=== PATIENT | female | born 1990 | race Caucasian/White ===

== ENCOUNTER 2019-06-25 22:09 | Emergency (ER) | payer OTHER ==
[~2019-06-25] VITALS: Ht 170 cm; Wt 122.1 kg
--- NOTE | 2019-06-25 22:15 | ED Abdominal Pain ---
General Stated Complaint: UPPER ABD PAIN Source of Information: Patient History of Present Illness Date Seen by Provider: Jun 25, 2019 Time Seen by Provider: 22:15 Initial Comments 29 yo F presenting with epigastric and RUQ abdominal pain that came on about 1 hour travel pta. She was at work and had just eaten some mac and cheese before the onset of pain. She is about 20 weeks EGA with current and has an appt to see Dr. Dia for her routine OB appt tomorrow. She had similar pains when she was in [place] last week after eating some food with pineapple. The pain resolved in [place] on it's own after she felt a "popping" sensation in her upper abdomen and it faded away. She has nausea with this but no vomiting. The pain does radiate to her back and right shoulder area. She has not tried Tylenol for the pain but did take Tums in [place] without any improvement. She had an OB ultrasound before going to [facility] and she was told they saw some stones in her gallbladder from when they did that routine OB ultrasound so she thinks this might be her gallbladder giving her problems. She has had no fever or chills and no change in her bowels and no burning or pain with urination. She has no vaginal bleeding or dischage. She still feels the baby moving. Allergies and Home Medications Allergies Coded Allergies: No Known Drug Allergies (Unverified , 06/25/19) Home Medications Acetaminophen with Codeine 1 Each Tablet, 1 EACH PO Q4H PRN for PAIN-SEVERE (8- 10) Prescribed by: BRITTNEY CASAREZRT on 06/25/192323 Ondansetron 4 Mg Tab.rapdis, 4 MG PO Q6H PRN for NAUSEA/VOMITING Prescribed by: BRITTNEY Frazier ENYART on 06/25/192323 Patient Home Medication List Home Medication List Reviewed: Yes Review of Systems Review of Systems Constitutional: No chills, No fever EENTM: No Symptoms Reported Respiratory: No Symptoms Reported Cardiovascular: No Symptoms Reported Gastrointestinal: See HPI Genitourinary: No Symptoms Reported Musculoskeletal: no symptoms reported Skin: no symptoms reported Psychiatric/Neurological: No Symptoms Reported Past Xcisvxf-Qjsyfc-Xnhwdq Hx Past Med/Social Hx: Reviewed Nursing Past Med/Soc Hx Patient Social History Recent Foreign Travel: No Contact w/Someone Who Travel: No Past Medical History Surgeries: No Physical Exam Vital Signs Vital Signs - First Documented 06/25/19 22:13 Temp 36.8 Pulse 101 Resp 22 B/P (MAP) 156/77 (103) Pulse Ox 97 O2 Delivery Room Air Capillary Refill : Height/Weight/BMI Height: '" Weight: lbs. oz. kg; BMI Method: General Appearance: WD/WN, moderate distress (holding her RUQ and epigastric area and pacing) HEENT: pharynx normal Neck: non-tender, supple, normal inspection Respiratory: chest non-tender, lungs clear, normal breath sounds, no respiratory distress, no accessory muscle use Cardiovascular: normal peripheral pulses, regular rate, rhythm Gastrointestinal: normal bowel sounds, soft, no pulsatile mass, guarding; No rebound; tenderness (RUQ and epigastric area), other (gravid uterus) Extremities: normal range of motion, non-tender, normal inspection, normal capillary refill Back: no vertebral tenderness, CVA tenderness (R) Neurologic/Psychiatric: pastor II-XII nml as tested, no motor/sensory deficits, alert, oriented x 3, other (anxious) Skin: normal color, warm/dry Images 1 - epigastric and RUQ abdominal pain, worse with palpation 2 - pain radiates into back and right scapula area Progress/Results/Core Measures Results/Orders Lab Results Laboratory Tests Test 06/25/19 22:26 06/25/19 22:32 Range/Units White Blood Count 12.1 H 4.3-11.0 10^3/uL Red Blood Count 4.14 L 4.35-5.85 10^6/uL Hemoglobin 11.7 11.5-16.0 G/DL Hematocrit 35 35-52 % Mean Corpuscular Volume 85 80-99 FL Mean Corpuscular Hemoglobin 28 25-34 PG Mean Corpuscular Hemoglobin Concent 33 32-36 G/DL Red Cell Distribution Width 15.0 H 10.0-14.5 % Platelet Count 379 130-400 10^3/uL Mean Platelet Volume 9.2 7.4-10.4 FL Neutrophils (%) (Auto) 62 42-75 % Lymphocytes (%) (Auto) 30 12-44 % Monocytes (%) (Auto) 6 0-12 % Eosinophils (%) (Auto) 2 0-10 % Basophils (%) (Auto) 0 0-10 % Neutrophils # (Auto) 7.5 1.8-7.8 X 10^3 Lymphocytes # (Auto) 3.6 1.0-4.0 X 10^3 Monocytes # (Auto) 0.7 0.0-1.0 X 10^3 Eosinophils # (Auto) 0.2 0.0-0.3 10^3/uL Basophils # (Auto) 0.0 0.0-0.1 10^3/uL Sodium Level 136 135-145 MMOL/L Potassium Level 3.9 3.6-5.0 MMOL/L Chloride Level 100 98-107 MMOL/L Carbon Dioxide Level 21 21-32 MMOL/L Anion Gap 15 H 5-14 MMOL/L Blood Urea Nitrogen 14 7-18 MG/DL Creatinine 0.86 0.60-1.30 MG/DL Estimat Glomerular Filtration Rate > 60 BUN/Creatinine Ratio 16 Glucose Level 109 H 70-105 MG/DL Calcium Level 9.3 8.5-10.1 MG/DL Corrected Calcium 9.6 8.5-10.1 MG/DL Total Bilirubin 0.2 0.1-1.0 MG/DL Aspartate Amino Transf (AST/SGOT) 16 5-34 U/L Alanine Aminotransferase (ALT/SGPT) 13 0-55 U/L Alkaline Phosphatase 79 40-136 U/L Total Protein 7.0 6.4-8.2 GM/DL Albumin 3.6 3.2-4.5 GM/DL Lipase 41 8-78 U/L Urine Color YELLOW Urine Clarity CLEAR Urine pH 6.5 5-9 Urine Specific [place] 1.025 H 1.016-1.022 Urine Protein NEGATIVE NEGATIVE Urine Glucose (UA) NEGATIVE NEGATIVE Urine Ketones NEGATIVE NEGATIVE Urine Nitrite NEGATIVE NEGATIVE Urine Bilirubin NEGATIVE NEGATIVE Urine Urobilinogen 0.2 < = 1.0 MG/DL Urine Leukocyte Esterase NEGATIVE NEGATIVE Urine RBC (Auto) NEGATIVE NEGATIVE Urine RBC NONE /HPF Urine WBC 0-2 /HPF Urine Squamous Epithelial Cells 10-25 H /HPF Urine Crystals PRESENT H /LPF Urine Amorphous Sediment MOD MORRO URATES H /LPF Urine Bacteria FEW H /HPF Urine Casts NONE /LPF Urine Mucus LARGE H /LPF Urine Culture Indicated NO My Orders Orders - BRITTNEY ALMENDAREZ MD Comprehensive Metabolic Panel (06/25/19 22:15) Lipase (06/25/19 22:15) Ua Culture If Indicated (06/25/19 22:15) Ed Iv/Invasive Line Start (06/25/19 22:15) Cbc With Automated Diff (06/25/19 22:15) Ns Iv 1000 Ml (Sodium Chloride 0.9%) (06/25/19 22:24) Ondansetron Injection (Zofran Injectio (06/25/19 22:24) Fentanyl Injection (Sublimaze Injection (06/25/19 22:24) Rx-Acetaminophen/Codeine (Rx-Tylenol #3) (06/25/19 23:15) Morphine Injection (Morphine Injection (06/25/19 23:14) Rx-Ondansetron Po (Rx-Zofran Po) (06/25/19 23:30) Rx-Ondansetron Po (Rx-Zofran Po) (06/25/19 23:23) Medications Given in ED Current Medications Medications Dose Ordered Sig/[place] Route Start Time Stop Time Status Last Admin Dose Admin Ondansetron HCl 4 mg Q6H PRN PO 06/25/19 23:30 06/25/19 23:29 DC 06/25/19 23:28 4 MG Vital Signs/I&O 06/25/19 06/25/19 22:13 23:28 Temp 36.8 36.8 Pulse 101 106 Resp 22 18 B/P (MAP) 156/77 (103) 142/82 (103) Pulse Ox 97 97 O2 Delivery Room Air 06/26/19 00:00 Intake Total 1000 ml Balance 1000 ml Progress Progress Note #1: Progress Note check labs and evaluate for obstruction or cholecystitis with CBC, Chemistry and look for pancreatitis with Lipase. Give IVF for hydration, Fentanyl for pain, Zofran for nausea. Check in with Dr. Dia after results back and see if her symptoms improve with treatment here in the ED. Progress Note #2: Time: 23:08 Progress Note On recheck of patient she reports her pain is improved with treatment. Reviewed with her that the labs show mild elevation of WBC to 12.1 K and Chemistry stable without elevation of Lipase or LFTs. Her UA shows some concentration to indicate she needs more hydration. She has no signs of cholecystitis or obstruction on her tests. 2311 D/w Dr. Dia and with her labs looking ok he was wanting her to have Tylenol # 3 for pain at home. Follow a strict low fat diet. See him in the am as scheduled. Will also send with take home for Tylenol # 3 and Zofran ODT and scripts of each. She did get an additional dose of pain medicine, Morphine 4 mg IV, prior to discharge to help with pain. Departure Impression Primary Impression: Epigastric abdominal pain affecting in second trimester Additional Impression: with abdominal pain of right upper quadrant, antepartum Disposition: HOME, SELF-CARE Condition: Stable Departure-Patient Inst. Decision time for Depature: 23:24 Referrals: ROC VELASCO DO (PCP/Family) Primary Care Physician JEREMY DIA DO Patient Instructions: Gallstones (DC), Low Cholesterol, Saturated Fat, and Trans Fat Diet Add. Discharge Instructions: Follow a strict Low fat diet Use the Tylenol # 3 pain medicine to help with severe pain. Make sure you are drinking plenty of water and staying well hydrated. Also take miralax while you are taking the Tylenol # 3 to prevent Constipation. Keep your appointment with Dr. Dia on SaturdayJune 26. Scripts Ondansetron (Ondansetron Odt) 4 Mg Tab.rapdis 4 MG PO Q6H PRN for NAUSEA/VOMITING for 2 Days, #8 TAB 0 Refills Prov: BRITTNEY ALMENDAREZ MD 06/25/19 Acetaminophen with Codeine (Acetaminophen-Cod #3 Tablet) 1 Each Tablet 1 EACH PO Q4H PRN for PAIN-SEVERE (8-10) for 3 Days, #20 TAB 0 Refills Prov: BRITTNEY ALMENDAREZ MD 06/25/19 BRITTNEY ALMENDAREZ MD Jun 25, 2019 22:15
[2019-06-25] MEDS ORDERED: fentaNYL INJECTION 100 MCG/2 ML AMP IVP STA (22:24)
[2019-06-25] MEDS ORDERED: ONDANSETRON 4 MG/2 ML (SDV) Z0FRAN IVP STA (22:24)
[2019-06-25] MEDS ORDERED: NS IV 1000 ML 1,000 ML IV STA (22:24)
[2019-06-25 22:43] LABS: HEMATOCRIT 35 % (35-52); HEMOGLOBIN 11.7 G/DL (11.5-16.0); MEAN CORPUSCULAR HEMOGLOBIN 28 PG (25-34); MEAN CORPUSCULAR HGB CONC 33 G/DL (32-36); MEAN CORPUSCULAR VOLUME 85 FL (80-99); WHITE BLOOD COUNT 12.1 10^3/uL (4.3-11.0)
[2019-06-25 22:44] LABS: BASOPHILS % (AUTO) 0 % (0-10); EOSINOPHILS # (AUTO) 0.2 10^3/uL (0.0-0.3); EOSINOPHILS % (AUTO) 2 % (0-10); LYMPHOCYTES # (AUTO) 3.6 X 10^3 (1.0-4.0); LYMPHOCYTES % (AUTO) 30 % (12-44); MEAN PLATELET VOLUME 9.2 FL (7.4-10.4); MONOCYTES # (AUTO) 0.7 X 10^3 (0.0-1.0); MONOCYTES % (AUTO) 6 % (0-12); NEUTROPHILS # (AUTO) 7.5 X 10^3 (1.8-7.8); NEUTROPHILS % (AUTO) 62 % (42-75); PLATELET COUNT 379 10^3/uL (130-400)
[2019-06-25 22:49] LABS: COLOR,URINE YELLOW; GLUCOSE, URINE (UA) NEGATIVE (NEGATIVE); PH,URINE 6.5 (5-9); PROTEIN,URINE NEGATIVE (NEGATIVE)
[2019-06-25 22:50] LABS: AMORPHOUS SEDIMENT,UR MOD AMOR URATES /LPF; BACTERIA,URINE FEW /HPF; BILIRUBIN,URINE NEGATIVE (NEGATIVE); CLARITY,URINE CLEAR; KETONES,URINE NEGATIVE (NEGATIVE); LEUKOCYTE ESTERASE ,URINE NEGATIVE (NEGATIVE); NITRITE,URINE NEGATIVE (NEGATIVE); WBC,URINE 0-2 /HPF
[2019-06-25 22:51] LABS: POTASSIUM 3.9 MMOL/L (3.6-5.0); SODIUM 136 MMOL/L (135-145)
[2019-06-25 22:52] LABS: ALANINE AMINOTRANSFERASE 13 U/L (0-55); ALBUMIN 3.6 GM/DL (3.2-4.5); ALKALINE PHOSPHATASE 79 U/L (40-136); BILIRUBIN,TOTAL 0.2 MG/DL (0.1-1.0); BUN/CREATININE RATIO 16; CALCIUM 9.3 MG/DL (8.5-10.1); CARBON DIOXIDE 21 MMOL/L (21-32); CHLORIDE 100 MMOL/L (98-107); CREATININE SERUM 0.86 MG/DL (0.60-1.30); GFR ESTIMATED > 60; GLUCOSE 109 MG/DL (70-105); LIPASE 41 U/L (8-78)
[2019-06-25] MEDS ORDERED: morphine INJ 10 MG/ML 1ML (SYR OR VIAL) IVP STA (23:14)
[2019-06-25] MEDS ORDERED: RX-ACETAMINOPHEN/CODEINE TAB PPK #4 PO SCH (23:15)
[2019-06-25] MEDS ORDERED: RX-ONDANSETRON 4 MG ODT (ZOFRAN) PPK #4 ONE (23:23)
[2019-06-25] MEDS ORDERED: ONDA4TAB11 PO (23:24)
[2019-06-25] MEDS ORDERED: ACET1TAB43 PO (23:24)
[2019-06-25 23:28] VITALS: BP 142/82
[2019-06-25] MEDS ORDERED: RX-ONDANSETRON 4 MG ODT (ZOFRAN) PPK #4 PO PRN (23:30)
== END 2019-06-25 23:28 | disposition home or self-care (01) ==
LOC: EDUNIT# 22:09 → ER FS 22:12
DX: O26.892 Other specified pregnancy related conditions, second trimester (principal); R10.13 Epigastric pain; R10.11 Right upper quadrant pain; Z3A.20 20 weeks gestation of pregnancy
CPT/HCPCS: 36415; 80053; 81000; 83690; 85025; 96361; 96374; 96375

== ENCOUNTER 2019-07-21 22:25 | Emergency (ER) | payer OTHER ==
[~2019-07-21] VITALS: Ht 172.7 cm; Wt 123.0 kg
[~2019-07-21 22:25] MED LIST: ACET1TAB43 PO; ONDA4TAB11 PO
--- NOTE | 2019-07-21 22:50 | NUR ---
Dr Alonso wanting pt to go to [place] for monitoring, called press hand supervisor and report given.
--- NOTE | 2019-07-21 22:52 | ED Abdominal Pain ---
General Chief Complaint: Abdominal/GI Problems Stated Complaint: ABD PAIN Nursing Triage Note: pt states she was here 1 month ago for same complaints, she is 24 weeks , was told earlier in that she had gallstones per ultrasound. has tylenol 3 at home which she took. had 1 episode of vomiting and diarrhea Sepsis Screen: No Definite Risk Source of Information: Patient Exam Limitations: No Limitations History of Present Illness Date Seen by Provider: Jul 21, 2019 Time Seen by Provider: 22:38 Initial Comments The patient is a 29-year-old female who is a and states that she is at 24 weeks and is c/o abdominal cramping discomfort which happens every 15 minutes or so. She states that she had one episode of vomiting and diarrhea as well but denies any nausea at this time. About a month ago she had some right upper quadrant discomfort and was told that she had gallstones per ultrasound performed at that time. She states that she was prescribed acetaminophen with codeine at that time and that today it was not helping. She states the pain she is having now is different and that her whole abdomen tightens up. I explained to the patient that we do not have any OB care at this facility and we are unable to get an ultrasound performed. I explained that typically we will send patients to [facility] to be evaluated in the labor and delivery unit if they're beyond 20 weeks and the patient states that she would like to do this. We contacted labor and delivery and they stated to some the patient. At this time the patient is not having any abdominal discomfort and is stable to go to [place]. Her significant other is going to drive her. Timing/Duration: 1-3 Hours Severity/Quality: Moderate Location: Generalized Abdomen Radiation: No Radiation Activities at Onset: None Associated Symptoms: Nausea/Vomiting Allergies and Home Medications Allergies Coded Allergies: No Known Drug Allergies (Unverified , 06/25/19) Home Medications Acetaminophen with Codeine 1 Each Tablet, 1 EACH PO Q4H PRN for PAIN-SEVERE (8- 10) Prescribed by: BRITTNEY ALMENDAREZ on 06/25/192323 Ondansetron 4 Mg Tab.rapdis, 4 MG PO Q6H PRN for NAUSEA/VOMITING Prescribed by: BRITTNEY CASAREZRT on 06/25/192323 Patient Home Medication List Home Medication List Reviewed: Yes Review of Systems Review of Systems Constitutional: no symptoms reported EENTM: No Symptoms Reported Respiratory: No Symptoms Reported Cardiovascular: No Symptoms Reported Gastrointestinal: Abdominal Pain, Nausea, Vomiting Genitourinary: No Symptoms Reported Musculoskeletal: no symptoms reported Skin: no symptoms reported Psychiatric/Neurological: No Symptoms Reported Endocrine: No Symptoms Reported Hematologic/Lymphatic: No Symptoms Reported All Other Systems Reviewed Negative Unless Noted: Yes Past Yoxtjdc-Uaoxly-Dawtne Hx Past Med/Social Hx: Reviewed Nursing Past Med/Soc Hx Patient Social History Alcohol Use: Denies Use Recreational Drug Use: No Smoking Status: Never a Smoker 2nd Hand Smoke Exposure: No Recent Foreign Travel: No Contact w/Someone Who Travel: No Recent Infectious Disease Expo: No Physical Abuse: No Sexual Abuse: No Mistreated: No Fear: No Seasonal Allergies Seasonal Allergies: No Past Medical History Surgeries: No Respiratory: No Cardiac: No Neurological: No Genitourinary: No Gastrointestinal: No Musculoskeletal: No Endocrine: No HEENT: No Cancer: No Psychosocial: No Integumentary: No Physical Exam Vital Signs Vital Signs - First Documented 07/21/19 22:35 Temp 36.4 Pulse 61 Resp 18 B/P (MAP) 119/51 (73) Pulse Ox 97 O2 Delivery Room Air Capillary Refill : Less Than 3 Seconds Height/Weight/BMI Height: '" Weight: lbs. oz. kg; 41.00 BMI Method: General Appearance: WD/WN, no apparent distress HEENT: PERRL/EOMI, normal ENT inspection Respiratory: chest non-tender, lungs clear, normal breath sounds, no respiratory distress Cardiovascular: regular rate, rhythm, no edema, no JVD Gastrointestinal: normal bowel sounds, non tender, soft, no organomegaly, no pulsatile mass, other (gravid abdomen, nontender) Extremities: normal range of motion, no pedal edema Back: normal inspection, no CVA tenderness Neurologic/Psychiatric: glove former II-XII nml as tested, no motor/sensory deficits, alert, normal mood/affect, oriented x 3 Skin: normal color, warm/dry Progress/Results/Core Measures Results/Orders Vital Signs/I&O 07/21/19 22:35 Temp 36.4 Pulse 61 Resp 18 B/P (MAP) 119/51 (73) Pulse Ox 97 O2 Delivery Room Air Blood Pressure Mean: 73 Progress Progress Note : Progress Note @2251 - Go directly to [facility] to the labor and delivery unit. They will be expecting you. They have the ability to monitor you and to determine if you're having contractions. Departure Impression Primary Impression: Abdominal pain affecting Disposition: HOME, SELF-CARE Condition: Stable Departure-Patient Inst. Decision time for Depature: 22:52 Referrals: ROC VELASCO DO (PCP/Family) Primary Care Physician Patient Instructions: Stomach Pain in Early Add. Discharge Instructions: Go directly to [facility] to the labor and delivery unit. They will be expecting you. AMISHA WARREN DO Jul 21, 2019 22:52
[2019-07-21 22:55] VITALS: BP 119/51
== END 2019-07-21 22:55 | disposition home or self-care (01) ==
LOC: EDUNIT# 22:25 → ER FS 22:27
DX: O26.892 Other specified pregnancy related conditions, second trimester (principal); R10.84 Generalized abdominal pain; Z3A.24 24 weeks gestation of pregnancy

== ENCOUNTER 2019-07-21 23:41 | Outpatient (CLI) | payer OTHER ==
[~2019-07-21] VITALS: Ht 170.2 cm; Wt 123.5 kg
--- NOTE | 2019-07-21 23:49 | NUR ---
DENG BERMAN presented to unit via ambulation from ED, accompanied by s.o., with c/o CONTRACTIONS. DENG BERMAN weighed, gowned, voided, and to bed. EFHM and TOCO applied, VS taken. DENG BERMAN oriented to bed controls, call light, TV, heat, and A/C controls.
[2019-07-21 23:59] VITALS: BP 136/71
[2019-07-22 00:16] LABS: BILIRUBIN,URINE NEGATIVE (NEGATIVE); CLARITY,URINE SL CLOUDY; COLOR,URINE YELLOW; GLUCOSE, URINE (UA) NEGATIVE (NEGATIVE); KETONES,URINE TRACE (NEGATIVE); LEUKOCYTE ESTERASE ,URINE NEGATIVE (NEGATIVE); NITRITE,URINE NEGATIVE (NEGATIVE); PH,URINE 6.5 (5-9); PROTEIN,URINE 1+ (NEGATIVE)
[2019-07-22 00:17] VITALS: BP 136/71
[2019-07-22 00:25] LABS: BACTERIA,URINE FEW /HPF; SQUAMOUS EPITHELIAL CELL,UR 25-50 /HPF; WBC,URINE RARE /HPF
--- NOTE | 2019-07-22 00:33 | NUR ---
Dr mejia called with report, order for discharge and to eat a low fat diet and follow up on as scheduled.
[2019-07-22 00:54] VITALS: BP 136/71
--- NOTE | 2019-07-22 00:55 | NUR ---
pt given verbal and written discharge instructions. Pt ambulated to private vehicle with SO.
--- NOTE | 2019-07-22 08:53 | Physician Query-Final Dx ---
NICHOLAS FLORES 07/22/19 0853: Clinic Account Progress/Dx Physician Query: Please give diagnosis Please include # weeks gestation Date of Service Jul 21, 2019 at 23:41 JEREMY MCNALLY DO 07/27/19 0700: Clinic Account Progress/Dx DIAGNOSIS: Diagnosis Intrauterine at 26+ weeks 2. Contractions 3. Nausea 4. Diarrhea NICHOLAS FLORES Jul 22, 2019 08:53 JEREMY MCNALLY DO Jul 27, 2019 07:00
== END 2019-07-22 00:56 | disposition home or self-care (01) ==
LOC: WSo 23:41 → LDRP 23:42 → WSo 07-22 00:56
PROVIDERS: ATTEND Obstetrics & Gynecology
DX: O62.9 Abnormality of forces of labor, unspecified (principal); Z3A.00 Weeks of gestation of pregnancy not specified
CPT/HCPCS: 81000; 99212